=== PATIENT | male | born 1995 | race Caucasian/White ===

== ENCOUNTER 2023-09-13 22:43 | Emergency (ER) | payer MEDICAID ==
[~2023-09-13] VITALS: Ht 175.3 cm; Wt 87.9 kg
[2023-09-13 23:02] VITALS: BP 116/77; PULSE 95; RESP 16; TEMP 98.5; O2SAT 99
[2023-09-13] MEDS ORDERED: PENI500T MT (23:39)
[2023-09-13] MEDS ORDERED: IBUP-2030 MT (23:39)
== END 2023-09-13 23:54 | disposition home or self-care (01) ==
LOC: ER 22:43
DX: K08.89 Other specified disorders of teeth and supporting structures (principal)
CPT/HCPCS: 99283